=== PATIENT | female | born 1970 | race Caucasian/White ===

== ENCOUNTER 2022-10-23 22:53 | Emergency (ER) | payer SELFPAY ==
[~2022-10-23] VITALS: Ht 162.6 cm; Wt 61.4 kg
[~2022-10-23 22:53] MED LIST: NO HOME MEDS
[2022-10-23 23:52] VITALS: BP_DIAS 99
[2022-10-24] MEDS ORDERED: lisinopril 10 MG tablet PO ONE (00:05)
[2022-10-24] MEDS ORDERED: lisinopril 2.5mg tablet PO ONE (00:10)
[2022-10-24 00:21] VITALS: BP_SYST 150
== END 2022-10-24 00:23 ==
LOC: ER 22:54
DX: I10 Essential (primary) hypertension (principal); V87.7XXA Person injured in collision between other specified motor vehicles (traffic), initial encounter; Y93.89 Activity, other specified; Y92.488 Other paved roadways as the place of occurrence of the external cause; Y99.8 Other external cause status
CPT/HCPCS: 99283